=== PATIENT | female | born 1950 | race Two or more races ===

== ENCOUNTER 2021-02-06 10:35 | Outpatient (CLI) | payer OTHER ==
[2021-03-29] MEDS ORDERED: DAFLO PO (10:01)
== END 2021-02-06 10:39 | disposition home or self-care (01) ==
LOC: SONOGRAMA 10:35
PROVIDERS: ATTEND Pathology Anatomic Pathology & Clinical Pathology
DX: N63.0 Unspecified lump in unspecified breast (principal)

== ENCOUNTER 2021-04-04 06:00 | Day surgery (SDC) | payer OTHER ==
[~2021-04-04] VITALS: Ht 170.2 cm; Wt 72.6 kg
[~2021-04-04 06:00] MED LIST: DAFLO PO
[2021-04-05] MEDS ORDERED: VITAMIN D310 MC1 PO (08:05)
[2021-04-05] MEDS ORDERED: VITAMIN C100 MG PO (08:05)
[2021-04-05] MEDS ORDERED: VITAMIN E400 UNI7 (08:06)
[2021-04-05] MEDS ORDERED: VITAMIN B-121000 MC4 PO (08:06)
[2021-04-05] MEDS ORDERED: DAFLONEX-XL 11300 MG PO (08:07)
== END 2021-04-05 10:56 | disposition home or self-care (01) ==
LOC: SURH 06:00 → O/R 06:00 → SURG 06:00 → CIR.AMB 06:00 → EDSTATUS 07:45 → SURH 07:45 → O/R 13:59 → SURG 13:59 → CIR.AMB 04-05 10:56
PROVIDERS: ATTEND Specialist
PROC: 0HTU0ZZ Resection of Left Breast, Open Approach (ICD-10-PCS; principal; 2021-04-04 09:45)
DX: C50.412 Malignant neoplasm of upper-outer quadrant of left female breast (principal); Z20.822 Contact with and (suspected) exposure to COVID-19

== ENCOUNTER 2021-05-22 07:22 | Outpatient (CLI) | payer OTHER ==
[~2021-05-22 07:22] MED LIST changes: +DAFLONEX-XL 11300 MG PO; +VITAMIN B-121000 MC4 PO; +VITAMIN C100 MG PO; +VITAMIN D310 MC1 PO; +VITAMIN E400 UNI7
== END 2021-05-22 07:27 | disposition home or self-care (01) ==
LOC: NUCLEAR 07:22
PROVIDERS: ATTEND Internal Medicine Hematology & Oncology
DX: C50.412 Malignant neoplasm of upper-outer quadrant of left female breast (principal); Z17.0 Estrogen receptor positive status [ER+]
CPT/HCPCS: 78815; A9552

== ENCOUNTER → 2022-03-04 | Emergency (ER) | payer OTHER ==
[~2022-03-04] VITALS: Ht 167.6 cm; Wt 74.8 kg
[~2022-03-04] MED LIST changes: +ANASTROZOLE1 MG PO; +KETO10TA2 PO; +MUPIROCIN22 GM TOP
== END | disposition home or self-care (01) ==
LOC: ER 13:35
DX: S70.02XA Contusion of left hip, initial encounter (principal); W18.30XA Fall on same level, unspecified, initial encounter; Y93.9 Activity, unspecified; Y92.018 Other place in single-family (private) house as the place of occurrence of the external cause; Y99.9 Unspecified external cause status; Z88.0 Allergy status to penicillin; Z88.2 Allergy status to sulfonamides; Z88.8 Allergy status to other drugs, medicaments and biological substances

== ENCOUNTER 2024-05-04 11:55 | Inpatient (IN) | payer OTHER ==
[~2024-05-04] VITALS: Ht 170.2 cm; Wt 72.6 kg
[2024-05-04] MEDS ORDERED: COZAAR25 MG (12:15)
[2024-05-04] MEDS ORDERED: CEFTRIAXONE SODIUM 2,000 MG VIAL IV STA (13:16)
[2024-05-04] MEDS ORDERED: CEFTRIAXONE SODIUM 2,000 MG VIAL ONE (13:21)
[2024-05-04 13:40] LABS: HEMATOCRIT 39.1 % (36.0-45.00); HEMOGLOBIN 12.9 g/dL (12.0-15.00); MEAN CELL VOLUME 83.4 fL (80.00-100.00); MEAN CORPUSCULAR HEMOGLOBIN 27.4 pg (27.00-32.0); MEAN CORPUSCULAR HGB CONC 32.9 g/dl (32.0-36.0); PLATELET COUNT 212 K/uL (150-450); RED BLOOD COUNT 4.69 M/uL (4.00-6.00); RED CELL DISTRIBUTION WIDTH 13.4 % (11.5-14.5)
[2024-05-04 13:59] LABS: CALCIUM 9.4 mg/dL (8.5-10.1); CREATININE SERUM 0.93 mg/dL (0.55-1.02); GFR 59.09; POTASSIUM 4.12 mEq/L (3.5-5.1)
[2024-05-04] MEDS ORDERED: ACETAMINOPHEN 500 MG GEL..CAP PO PRN (17:00)
[2024-05-04] MEDS ORDERED: FAMOTIDINE/PF 20 MG in 0.9 % SODIUM CHLORIDE 8 ML IV PUSH SCH (17:00)
[2024-05-04] MEDS ORDERED: 0.9 % SODIUM CHLORIDE 1,000 ML IV SCH (17:00)
[2024-05-04] MEDS ORDERED: FAMOTIDINE/PF 20 MG/2 ML VIAL ONE (17:53)
[2024-05-04] MEDS ORDERED: MEPERIDINE HCL/PF 25 MG/ML VIAL IM PRN (18:30)
[2024-05-04 18:45] LABS: INR 1.02; PARTIAL THROMBOPLASTIN TIME 26.6 SECONDS (22.0-34.0); PROTHROMBIN TIME 11.1 SECONDS (9.0-11.5)
[2024-05-04 19:04] LABS: URINE APPEARANCE Clear; URINE BILIRRUBIN Negative (NEGATIVE); URINE BLOOD Negative; URINE COLOR Yellow; URINE GLUCOSE Negative (NEGATIVE); URINE KETONE Trace (NEGATIVE); URINE LEUKOCYTE Moderate; URINE NITRATE Negative; URINE PROTEIN Negative (NEGATIVE); URINE UROBILINOGEN 0.2 E.U./dl
[2024-05-04 19:08] LABS: URINE BACTERIA 827.7 uL (0.0-1933); URINE EPITHELIAL CELLS 41.8 uL (0.0-38.8); URINE RBC 4.4 uL (0.0-20.8); URINE WBC 104.5 uL (0.0-23.2)
[2024-05-04 19:18] VITALS: BP 134/74
[2024-05-04 19:37] VITALS: BP 134/74; O2SAT 97
[2024-05-04 19:39] LABS: URINE CAST 0.61 uL (0.0-1.40)
[2024-05-05 01:17] VITALS: BP 125/74
[2024-05-05] MEDS ORDERED: LOSARTAN POTASSIUM 25 MG TABLET PO SCH (09:00)
[2024-05-05] MEDS ORDERED: CEFTRIAXONE SODIUM 2,000 MG in 0.9 % SODIUM CHLORIDE 100 ML IV SCH (09:00)
[2024-05-05] MEDS ORDERED: ENOXAPARIN SODIUM 40 MG/0.4 ML SYRINGE SUBCUTANEO SCH (09:00)
[2024-05-05 09:29] VITALS: BP 121/75; O2SAT 98
[2024-05-05 15:06] LABS: INR 1.07; PROTHROMBIN TIME 11.6 SECONDS (9.0-11.5)
[2024-05-05] MEDS ORDERED: FAMOTIDINE/PF 20 MG/2 ML VIAL ONE (17:33)
[2024-05-05 20:59] VITALS: BP 151/65
[2024-05-05] MEDS ORDERED: LINEZOLID 600 MG TABLET PO SCH (22:12)
[2024-05-06 02:45] VITALS: BP 117/70; O2SAT 95
[2024-05-06 09:10] LABS: CA 27.29 13.6 U/mL (0.0-38.6)
[2024-05-06 09:15] VITALS: BP 158/90
[2024-05-06] MEDS ORDERED: CHLORHEXIDINE GLUCONATE 120 ML BOTTLE TOP STA (11:18)
[2024-05-06] MEDS ORDERED: KETOROLAC TROMETHAMINE 30 MG VIAL IV SCH (12:16)
[2024-05-06 13:11] LABS: CA 15-3 15.2 U/mL (0.0-25.0)
[2024-05-06 18:31] VITALS: BP 141/64
[2024-05-07 01:15] VITALS: BP 133/67; O2SAT 99
[2024-05-07 09:44] VITALS: BP 166/80
[2024-05-07 17:51] VITALS: BP 157/79
[2024-05-08 00:32] VITALS: BP 153/80
[2024-05-08] MEDS ORDERED: FAMOTIDINE/PF 20 MG/2 ML VIAL ONE ×2 (08:18→15:56)
[2024-05-08 09:12] VITALS: BP 181/88
[2024-05-08] MEDS ORDERED: FAMOtidine 20 MG TABLET PO SCH (17:00)
[2024-05-08 18:14] VITALS: BP 173/83; O2SAT 96
[2024-05-09 02:26] VITALS: BP 171/85
[2024-05-09 05:52] VITALS: BP 152/82
[2024-05-09 07:50] LABS: HEMATOCRIT 34.3 % (36.0-45.00); HEMOGLOBIN 11.3 g/dL (12.0-15.00); MEAN CORPUSCULAR HEMOGLOBIN 27.1 pg (27.00-32.0); MEAN CORPUSCULAR HGB CONC 33.1 g/dl (32.0-36.0); PLATELET COUNT 235 K/uL (150-450); RED BLOOD COUNT 4.18 M/uL (4.00-6.00); RED CELL DISTRIBUTION WIDTH 12.7 % (11.5-14.5)
[2024-05-09 09:17] VITALS: BP 156/87; O2SAT 95
[2024-05-09 17:53] VITALS: BP 160/85; O2SAT 97
[2024-05-10 03:18] VITALS: BP 190/77
[2024-05-10 08:00] VITALS: BP 197/98; O2SAT 97
[2024-05-10] MEDS ORDERED: CEPHALEXIN750 MG PO (09:19)
[2024-05-10 14:01] VITALS: BP 170/85; O2SAT 95
== END 2024-05-10 15:02 | disposition home or self-care (01) | DRG 603 ==
LOC: ER 11:56 → MEDJ 17:48 → MEDI 05-05 17:10
PROVIDERS: General Practice; Internal Medicine; Internal Medicine Hematology & Oncology; Specialist; ADMIT Internal Medicine; ATTEND Internal Medicine
PROC: BB24YZZ Computerized Tomography (CT Scan) of Bilateral Lungs using Other Contrast (ICD-10-PCS; 2024-05-04)
PROC: 0J960ZZ Drainage of Chest Subcutaneous Tissue and Fascia, Open Approach (ICD-10-PCS; principal; 2024-05-05 14:45)
DX: L02.213 Cutaneous abscess of chest wall (principal); Z90.12 Acquired absence of left breast and nipple; Z88.2 Allergy status to sulfonamides; Z85.3 Personal history of malignant neoplasm of breast; Z92.29 Personal history of other drug therapy

== ENCOUNTER 2024-06-03 13:04 | Outpatient (CLI) | payer OTHER ==
[~2024-06-03 13:04] MED LIST changes: +CEPHALEXIN750 MG PO; +COZAAR25 MG
== END 2024-06-03 13:11 | disposition home or self-care (01) ==
LOC: MAMO-SONO 13:04
PROVIDERS: ATTEND Specialist
DX: L02.213 Cutaneous abscess of chest wall (principal)

== ENCOUNTER 2024-10-14 15:04 | Outpatient (CLI) | payer OTHER | END 2024-10-14 15:12 | disposition home or self-care (01) | LOC: SONOGRAMA 15:04 | PROVIDERS: ATTEND Specialist | DX: L02.213 Cutaneous abscess of chest wall (principal); Z90.12 Acquired absence of left breast and nipple; Z85.3 Personal history of malignant neoplasm of breast ==